=== PATIENT | female | born 1970 | race Caucasian/White ===

== ENCOUNTER 2019-02-02 13:26 | Inpatient (IN) | payer MEDICAID, OTHER ==
[~2019-02-02] VITALS: Ht 175.3 cm; Wt 92.3 kg
[2019-02-02] MEDS ORDERED: TRAM50TA2 PO (14:12)
[2019-02-02] MEDS ORDERED: NIFE30TA15 PO (14:12)
--- NOTE | 2019-02-02 14:16 | NUR ---
PT TO ED FOR LEFT FINGERTIP NECROSIS AND PAIN FOLLOWING VIBRATION INJURY ON 01/12/2019. PT FOLLOWED BY DR. PAREKH. PT STATES SHE WAS PLANNING ON AMPUTATION IN THE FUTURE BUT PAIN IS TOO BAD TO WAIT ANY LONGER. CONNECTED TO MONITOR. VSS. EDMD ASSESSMENT COMPLETE. ORDERS RECEIVED. LAB AT BEDSIDE.
[2019-02-02] MEDS ORDERED: HYDROmorphone 2 MG/ML, 1ML IVPush PRN (14:30)
[2019-02-02] MEDS ORDERED: ONDANSETRON 2MG/ML, 2ML IVPush ONE (14:30)
[2019-02-02] MEDS ORDERED: ONDANSETRON 2MG/ML, 2ML ONE (14:35)
[2019-02-02] MEDS ORDERED: HYDROmorphone 1 MG/ML, 1ML VIAL ONE (14:35)
[2019-02-02 14:45] LABS: HCT (SEDRATE) 36.3 % (34.6-47.8)
[2019-02-02 14:48] LABS: BASOPHILS # (AUTO) 0.07 x10^3/uL (0-0.1); BASOPHILS % (AUTO) 1 % (0-1); EOSINOPHILS # (AUTO) 0.28 x10^3/uL (0-0.4); EOSINOPHILS % (AUTO) 3 % (1-7); LYMPHOCYTES # (AUTO) 3.51 x10^3/uL (1-3.4); LYMPHOCYTES % (AUTO) 43 % (22-44); MD NO; MEAN CORPUSCULAR HEMOGLOBIN 30.1 pg (27.0-34.8); MEAN CORPUSCULAR HGB CONC 34.2 g/dL (32.4-35.8); MEAN CORPUSCULAR VOLUME 88.2 fL (80-100); MEAN PLATELET VOLUME 6.9 fL (7.4-10.4); MONOCYTES # (AUTO) 0.53 x10^3/uL (0.2-0.8); MONOCYTES % (AUTO) 7 % (2-9); NEUTROPHILS # (AUTO) 3.74 x10^3/uL (1.8-6.8); NEUTROPHILS % (AUTO) 46 % (42-75); PLATELET COUNT 524 x10^3/uL (130-400); RED BLOOD COUNT 4.04 x10^6/uL (3.82-5.3); RED CELL DISTRIBUTION WIDTH 13.1 % (9.6-15.2)
[2019-02-02 14:53] LABS: ALBUMIN 3.9 g/dL (3.4-5.0); ANION GAP 8 mmol/L (5-15); C-REACTIVE PROTEIN, QUANT 0.47 mg/dL (0.02-0.49); CALCIUM 9.2 mg/dL (8.5-10.1); CHLORIDE 109 mmol/L (98-107); CREATININE 0.79 mg/dL (0.55-1.02)
[2019-02-02] MEDS ORDERED: VANCOMYCIN PER PHARMACY MC PRN (15:00)
[2019-02-02] MEDS ORDERED: ZOSYN PER PHARMACY MC PRN (15:00)
[2019-02-02] MEDS ORDERED: PIPERACILLIN/TAZO/PMX 3.375GM 50 ML IV ONE (15:00)
[2019-02-02] MEDS ORDERED: VANCOMYCIN 1,800 MG in SODIUM CHLORIDE 0.9% 250 ML IV ONE (15:00)
--- NOTE | 2019-02-02 15:18 | NUR ---
IV ABX STARTED. BC VEFIFIED COLLECTED. NO NEEDS EXPRESSED. AWAITING BED ASSIGNMENT.
[2019-02-02 17:00] VITALS: BP 95/56
[2019-02-02] MEDS: CLINDAMYCIN 300 MG CAPSULE PO SCH (18:06)
[2019-02-02] MEDS ORDERED: FENTANYL PF 100 MCG/2ML ONE (18:22)
[2019-02-02] MEDS: FENTANYL PF 100 MCG/2ML IVPush PRN ×2 (18:26→21:30)
[2019-02-02 19:29] VITALS: BP 94/57
[2019-02-03] MEDS: KETOROLAC 30 MG/1 ML IM PRN ×3 (00:25→20:35)
[2019-02-03] MEDS: FENTANYL PF 100 MCG/2ML IVPush PRN ×8 (00:25→22:00)
[2019-02-03 02:16] VITALS: BP 94/63
[2019-02-03] MEDS: CLINDAMYCIN 300 MG CAPSULE PO SCH ×3 (03:15→17:10)
[2019-02-03 05:11] LABS: BASOPHILS # (AUTO) 0.09 x10^3/uL (0-0.1); BASOPHILS % (AUTO) 1 % (0-1); EOSINOPHILS % (AUTO) 6 % (1-7); LYMPHOCYTES # (AUTO) 3.47 x10^3/uL (1-3.4); LYMPHOCYTES % (AUTO) 43 % (22-44); MD NO; MEAN CORPUSCULAR HEMOGLOBIN 30.2 pg (27.0-34.8); MEAN CORPUSCULAR HGB CONC 34.3 g/dL (32.4-35.8); MEAN PLATELET VOLUME 6.8 fL (7.4-10.4); MONOCYTES # (AUTO) 0.66 x10^3/uL (0.2-0.8); MONOCYTES % (AUTO) 8 % (2-9); NEUTROPHILS # (AUTO) 3.46 x10^3/uL (1.8-6.8); NEUTROPHILS % (AUTO) 42 % (42-75); PLATELET COUNT 432 x10^3/uL (130-400); RED BLOOD COUNT 3.76 x10^6/uL (3.82-5.3); RED CELL DISTRIBUTION WIDTH 13.1 % (9.6-15.2)
[2019-02-03 05:22] LABS: ALANINE AMINOTRANSFERASE 16 U/L (12-78); ALBUMIN 3.2 g/dL (3.4-5.0); ANION GAP 6 mmol/L (5-15); CALCIUM 8.5 mg/dL (8.5-10.1); CHLORIDE 111 mmol/L (98-107)
[2019-02-03 05:24] LABS: ALKALINE PHOSPHATASE 68 U/L (45-117); BILIRUBIN,TOTAL 0.6 mg/dL (0.2-1.0); CREATININE 0.65 mg/dL (0.55-1.02); TOTAL PROTEIN 6.4 g/dL (6.4-8.2)
[2019-02-03 07:16] VITALS: BP 98/64
[2019-02-03] MEDS ORDERED: niFEDipine ER 90 MG TAB.ER.24 PO SCH (09:00)
[2019-02-03 13:38] VITALS: BP 105/68
[2019-02-03 19:18] VITALS: BP 100/62
[2019-02-03] MEDS: ONDANSETRON 2MG/ML, 2ML IVPush PRN (22:00)
[2019-02-04 01:25] VITALS: BP 102/67
[2019-02-04] MEDS: FENTANYL PF 100 MCG/2ML IVPush PRN ×8 (01:54→20:36)
[2019-02-04] MEDS: CLINDAMYCIN 300 MG CAPSULE PO SCH ×3 (03:00→20:36)
[2019-02-04 07:07] VITALS: BP 117/81
[2019-02-04] MEDS: KETOROLAC 30 MG/1 ML IM PRN ×2 (07:43→20:36)
[2019-02-04 13:59] VITALS: BP 123/80
[2019-02-04 19:34] VITALS: BP 112/77
[2019-02-04] MEDS: ONDANSETRON 2MG/ML, 2ML IVPush PRN (20:36)
[2019-02-05 00:20] VITALS: BP 119/80
[2019-02-05] MEDS: FENTANYL PF 100 MCG/2ML IVPush PRN ×6 (00:33→12:22)
[2019-02-05] MEDS: CLINDAMYCIN 300 MG CAPSULE PO SCH ×3 (04:39→20:20)
[2019-02-05] MEDS: KETOROLAC 30 MG/1 ML IM PRN ×2 (06:04→12:22)
[2019-02-05] MEDS: ONDANSETRON 2MG/ML, 2ML IVPush PRN ×2 (06:04→12:22)
[2019-02-05 06:47] VITALS: BP 103/63
[2019-02-05 12:50] VITALS: BP 119/80
[2019-02-05] MEDS ORDERED: BUPIVACAINE/EPI 0.5% 1:200K ONE (13:53)
[2019-02-05] MEDS ORDERED: MIDAZOLAM 1 MG/ML, 2ML ONE (14:20)
[2019-02-05] MEDS ORDERED: FENTANYL PF 250 MCG/5ML ONE (14:20)
[2019-02-05] MEDS ORDERED: PROPOFOL 50 ML ONE (14:42)
[2019-02-05] MEDS ORDERED: DEXAMETHASONE 4 MG/ML, 1ML ONE (14:47)
[2019-02-05] MEDS ORDERED: CEFAZOLIN 1,000 MG ONE (14:47)
[2019-02-05] MEDS ORDERED: BUPIVACAINE/PF 0.5% ONE (15:24)
[2019-02-05] MEDS ORDERED: HALOPERIDOL 5 MG/ML IV PRN (16:00)
[2019-02-05] MEDS ORDERED: FENTANYL PF 100 MCG/2ML IV PRN (16:00)
[2019-02-05] MEDS ORDERED: ACETAMINOPHEN 325 MG TABLET PO PRN (16:00)
[2019-02-05] MEDS ORDERED: PROMETHAZINE 25 MG/ML, 1ML IV PRN (16:00)
[2019-02-05] MEDS ORDERED: OXYcodone 5 MG/5 ML ORAL.SOL UDC PO PRN (16:00)
[2019-02-05] MEDS ORDERED: LORazepam 2 MG/ML, 1ML IVPush PRN (16:00)
[2019-02-05] MEDS ORDERED: HYDROmorphone 2 MG/ML, 1ML IVPush PRN (16:00)
[2019-02-05] MEDS ORDERED: MEPERIDINE/PF 25MG/0.5ML IVPush PRN (16:00)
[2019-02-05 19:02] VITALS: BP 119/81
[2019-02-06 01:06] VITALS: BP 117/71
[2019-02-06] MEDS: KETOROLAC 30 MG/1 ML IM PRN ×2 (01:32→08:11)
[2019-02-06] MEDS: FENTANYL PF 100 MCG/2ML IVPush PRN ×3 (03:02→08:09)
[2019-02-06] MEDS: CLINDAMYCIN 300 MG CAPSULE PO SCH (04:59)
[2019-02-06 08:14] VITALS: BP 123/70
[2019-02-06 10:42] VITALS: BP 128/76
[2019-02-06] MEDS ORDERED: HYDR-3240 PO (12:14)
== END 2019-02-06 12:05 | disposition home or self-care (01) | DRG 257 ==
LOC: ED 15:03 → EDIP 15:04 → ED 15:11 → 4NOR 16:48 → DCLOUNGE 02-06 11:58
PROVIDERS: ADMIT Internal Medicine; ATTEND Internal Medicine
PROC: 0X6T0Z3 Detachment at Left Ring Finger, Low, Open Approach (ICD-10-PCS; 2019-02-05)
PROC: 3E0T3BZ Introduction of Anesthetic Agent into Peripheral Nerves and Plexi, Percutaneous Approach (ICD-10-PCS; 2019-02-05)
PROC: 0X6P0Z3 Detachment at Left Index Finger, Low, Open Approach (ICD-10-PCS; principal; 2019-02-05 14:30)
DX: I96 Gangrene, not elsewhere classified (principal); T75.2 Effects of vibration; D64.9 Anemia, unspecified; D47.3 Essential (hemorrhagic) thrombocythemia; W49.9XXA Exposure to other inanimate mechanical forces, initial encounter; Z87.410 Personal history of cervical dysplasia; Z87.891 Personal history of nicotine dependence; Z90.710 Acquired absence of both cervix and uterus; Z88.8 Allergy status to other drugs, medicaments and biological substances; Y93.89 Activity, other specified; Y92.89 Other specified places as the place of occurrence of the external cause; Y99.8 Other external cause status
CPT/HCPCS: 36415; 80048; 80053; 82040; 84443; 85025; 85651; 86140; 87040; 88300; 96374; 96375; 99285; G0378; J0690; J1100; J1170; J1885; J2250; J2405; J2543; J2704; J3010; J3370; J3490; J7050